=== PATIENT | female | born 1970 ===

== ENCOUNTER 2025-04-17 17:11 | Inpatient (IN) | payer BC, SELFPAY ==
[2025-04-17 13:07] VITALS: BP 105/85
--- NOTE | 2025-04-17 13:19 | ED.GENMED ---
History of Present Illness
General
Chief Complaint: Catheter/Tube Problem
Time Seen by Provider: 04/17/25 13:19
History of Present Illness
History of Present Illness:
FOCUSED PAST MEDICAL HISTORY
- The patient has a history of endometriosis, had gastric sleeve/gastric bypass in the past
REVIEW OF OLD RECORDS
- I reviewed records, the patient had a sleeve gastrectomy
Note:
CHIEF COMPLAINT(S)
Discomfort and pus at the peripherally inserted central catheter (PICC) line site.
HISTORY OF PRESENT ILLNESS
The patient is a 54-year-old female with a PICC line due to inability to consume nutrition orally, managed by Dr. Alesha Mejia and Dr. Maldonado. The patient reports experiencing discomfort at the PICC line site for the past week, with the
discomfort worsening upon flushing and causing a burning sensation. This morning, the patient observed pus at the insertion site, leading to a visit to the emergency department as advised by the visiting nurses through the 800 infusion emergency
line. The patient denies any fever, diarrhea, or other systemic symptoms and has not experienced an infection at the PICC site before, although she reports previous complications with a PICC line. The current PICC line has been in place since October
or November.
ADDITIONAL HISTORY OBTAINED FROM SOURCES OTHER THAN THE PATIENT
The visiting nurses advised the patient to seek emergency medical care after discovering pus at the PICC line site.
CHRONIC MEDICAL CONDITIONS SIGNIFICANTLY AFFECTING CARE
The patient is unable to consume nutrition orally, which necessitates the use of a PICC line.
PHYSICAL EXAM
General: Alert, no acute distress.
Skin: Warm, dry.
Head: Normocephalic, atraumatic.
Neck: Supple, trachea midline.
Eye, Ears, Nose, Mouth and Throat: Oral mucosa moist.
Cardiovascular: Normal peripheral perfusion, No edema.
Respiratory: Respirations are non-labored.
Gastrointestinal: Abdomen nondistended.
Back: Normal range of motion, Normal alignment.
Musculoskeletal: Normal range of motion, normal strength.
Neurological: Alert and oriented to person, place, time, and situation, No focal neurological deficit observed.
Psychiatric: Cooperative, appropriate mood & affect.
PROBLEM LIST
Acute Problems:
- Discomfort and pus at PICC line site suggesting possible infection.
PLAN
The emergency department staff will contact the infection prevention team (IP team) to evaluate the PICC line site and, if possible, arrange for the placement of a new PICC line. If confirmed as an infection, the current PICC line should be removed
and replaced.
DIFFERENTIAL DIAGNOSIS
The Differential Diagnosis includes, in no particular order and is not limited to:
- PICC line infection
- Local cellulitis
- Thrombosis at the PICC site
- Catheter-related bloodstream infection
- Mechanical phlebitis
- Chemical irritation from infusion
- Skin infection unrelated to the PICC
- Early abscess formation
- Foreign body reaction
- Dermatological condition at insertion site
LABS
- White count 5.1, lactic 0.7, blood cultures pending, PICC tip culture pending
UPDATE
- I discussed case with Dr. Peres who recommends that we have the patient admitted to the hospital for IV vancomycin and IV cefepime, cultures, TTE. We remove the left upper extremity PICC
SUMMARY OF ENCOUNTER
The patient, a 54-year-old female with a peripherally inserted central catheter (PICC) line due to inability to consume nutrition orally, presented with discomfort and observed pus at the PICC line site, suggestive of a possible infection. After
discussion with the infectious disease specialist, it was recommended to admit the patient to the hospital for intravenous antibiotics, specifically vancomycin and cefazolin, pending further evaluation of the PICC line site. Plans include conducting
an ultrasound on the right side to confirm accessibility for line placement due to a history of thrombosis post-gastrectomy in March. The PICC line site was to be cultured to confirm infection, and a temporary line placement was considered.
DISPOSITION
Admit
ASSESSMENT
The patient is likely experiencing a PICC line infection with differential diagnoses including bacteremia related to PICC line, local cellulitis, and mechanical phlebitis. Due to the concern of a previous clot, additional diagnostics may be required
to ensure proper vascular access.
MANAGEMENT OF THE PATIENTS CARE WAS DISCUSSED WITH
Infectious disease specialist
PLAN
Admit the patient for hospital care with intravenous antibiotics, initiate treatment with vancomycin and cefazolin as recommended by the infectious disease team, perform an ultrasound of the right side to determine accessibility and ensure no risk
of thrombosis for line placement, and culture the PICC line site to guide further management.
MEDICATION RECONCILIATION
Prescribed intravenous vancomycin and cefazolin for treatment post assessment by the infectious disease specialist.
MEDICAL DECISION MAKING
-Complexity of Data Reviewed:
Chronic conditions affecting care: Inability to consume nutrition orally necessitating a PICC line. Differential diagnoses for current presentation include PICC line infection, local cellulitis, thrombosis, catheter-related bloodstream infection,
mechanical phlebitis, and foreign body reaction.
-Data:
Category 1
Clinical information obtained regarding the past clot was considered for ultrasound screening on the right side for proper vascular access.
Category 3
Discussion of management with infectious disease specialist.
CRITICAL CARE TIME
None mentioned.
DIAGNOSIS
PICC line infection, other ICD-10 code: T82.7
Consideration for bacteremia related to PICC line, ICD-10 code: A49.9
Phy Exam
Physical Exam
Physical Exam:
See HPI
Sepsis
Sepsis Screening
Sepsis Assessment: Sepsis Ruled Out
Sepsis Screen
Sepsis Screen: Sepsis Ruled Out
Date: 04/17/25
Time: 15:30
Course
Orders/Labs/Results
Orders:
Orders
04/17/25 13:29
PICC Line As Directed
04/17/25 14:33
Periph Venous Upr Ext Right US [US Periph Venous UPPER Ext RT] Urgent
Comment:
Reason For Exam: dvt/ro
04/17/25 14:43
Basic Metabolic Panel Urgent
Complete Blood Count/With Diff Urgent
Lactic Acid Urgent
Blood Culture Q30M
JANUARY Source: Blood/Venous
Specimen Description:
04/17/25 14:44
Culture- Patient Line [Patient Line Culture] Urgent
JANUARY Source: Picc
Specimen Description:
Date Specimen was Collected: 04/17/25
Time Specimen was Collected: 14:42
Comment: by Vascular team
04/17/25 15:07
Cefepime HCl [Maxipime] 1,000 mg IV NOW STA
04/17/25 15:08
Vancomycin [Vancocin] 1,500 mg 0.9% Sodium Chloride 500 ml [Nss] 500 ml IV NOW
04/17/25 15:15
Blood Culture Q30M
JANUARY Source: Blood/Venous
Specimen Description:
Abnormal Lab Results
04/17/25
14:43
RBC 3.67 L 10^6/uL
(4.20-5.40)
Hgb 10.9 L g/dL
(12.0-16.0)
Hct 32.8 L %
(37.0-47.0)
Absolute Lymphs (auto) 1.0 L 10^3/uL
(1.2-3.4)
Lymphocytes % 18.9 L %
(20.5-51.1)
04/17/25 14:43
04/17/25 14:43
Vital Signs
Initial and Last Documented VS:
Initial Vital Signs
Temp Pulse Resp BP Pulse Ox
36.8 C 88 22 105/85 97
04/17/25 13:07 04/17/25 13:07 04/17/25 13:07 04/17/25 13:07 04/17/25 13:07
Last Documented Vital Signs
Temp Pulse Resp BP Pulse Ox
36.7 C 89 16 104/81 99
04/17/25 14:00 04/17/25 14:00 04/17/25 14:00 04/17/25 14:00 04/17/25 14:00
*Pulse Oximetry
SaO2: 97
Oxygen Mode of Delivery: Room air
Patient hypoxic: no
*Critical Care Note
Total Time (30-74mins, 75-104mins- exclusive of procedures): Not Applicable
ED Attending Note
-
Portions of this chart may have been created with voice recognition software.� Occasional wrong word or��sound alike� substitutions may have occurred due to the inherent limitations of voice recognition software.
Discharge Plan
Departure
Patient Disposition: Admit
Date of Disposition: 04/17/25
Time of Disposition: 15:29
Presentation/result/management discussed w/ accepting MD/DO: Hospitalist
Discharge Problem:
PICC line infection
Interventions
Interventions:
*Risk Screen - Suicide Last Done: 04/17/25 13:07
*General Assessment Last Done: 04/17/25 13:07
*Neglect/Abuse Screening Last Done: 04/17/25 13:07
*ED- Fall Risk Assessment Last Done: 04/17/25 13:21
*ED COVID-19 Vaccine History Last Done: 04/17/25 13:20
PL-Fnxyzt-Pbsauthvcg Assessment Last Done: 04/17/25 13:26
ED-Female Genitourinary Assessment Last Done: 04/17/25 13:25
Discharge Date and Time
Print Language: SURINAMESE
[2025-04-17 13:20] VITALS: BMI 21.4
[2025-04-17 14:00] VITALS: BP 104/81
[2025-04-17 15:10] LABS: Hematocrit 32.8 % (37.0-47.0); Hemoglobin 10.9 g/dL (12.0-16.0); Mean Corp Hgb Conc. 33.2 g/dL (33.0-37.0); Mean Corpuscular Volume 89.4 fL (81.0-99.0); Nucleated Red Blood Cells % 0 %; Platelet Count 146 10^3/uL (130-400); Red Cell Dist. Width 13.6 % (11.5-14.5)
--- NOTE | 2025-04-17 15:20 | VATNOTE ---
Called to remove suspected infected left arm PICC and place new PICC in opposite arm. Client states that she had picc placed at [facility] for nutrition post gastrectomy and is followed by a home infusion company. States that home infusion nurse came to
her home the other day to redress her PICC line and it has been very painful since. Purulent drainage noted at insertion site. Arm tender to touch. Expressed concern to place PICC in opposite arm due to possible infection and colonization to new
PICC. ED physician requested midline catheter in unaffected arm. Upon questioning client she stated that she had a PICC in her right arm last year and she developed a DVT around it. Right arm appears slightly larger than left. Again, alerted this
information to emergency room physician. Left arm PICC line removed and sent tip for culture. Bloodwork drawn. Urgent ultrasound to right arm ordered and will await results. VAT to follow.
[2025-04-17 15:28] LABS: Blood Urea Nitrogen 15 mg/dl (7-17); Calcium 9.8 mg/dl (8.4-10.2); Carbon Dioxide 28 mmol/L (22-30); Chloride 105 mmol/L (98-107); Estimated Creatinine Clearance 95 ml/min; Glucose 91 mg/dl (70-99); Potassium 4.3 mmol/L (3.5-5.1); Sodium 138 mmol/L (135-145); eGFR > 60.00
[2025-04-17 16:25] VITALS: BP 105/87
--- NOTE | 2025-04-17 16:33 | HPS.HSE ---
Addendum entered and electronically signed by Ayleen Donald MD 04/17/25 20:05:
Correction, the superficial vein thrombosis within the right arm and previously had a DVT there. Not in the left arm or the PICC line removed today. I will discuss with the patient and the nurse
Original Note:
Family Physician
-
Family Physician:
Chief Complaint
-
Purulent discharge from left arm PICC line
History of Present Illness
54-year-old female accompanied by the with known history of gastric bypass with multiple complication including multiple ulcer with eventual total gastrectomy and she is on TPN on daily basis in the evening, this all happened in the last
year and a half. Presented again to the hospital after she woke up this morning having some pain and discomfort in the left arm around the PICC line and eventually when she looked at it there was some purulent discharge came out he called
[facility] is usually goes daily advised her to go to the nearest hospital if she is educated I will start as she is now part of plan. Admit did not feel well the last couple of the otherwise denied any fever or chill or
cough or congestion or any nausea or vomiting or any headache or vision change, no weakness or numbness in extremity, no pulling or tugging on the PICC line.
The PICC line been removed in the ER but to rule out bacteremia therefore cannot put in place a new PICC line and to the blood culture negative for minimum 48 hours.
Also ultrasound of the vein showed superficial vein thrombosis in basilic and cephalic vein.
Medical History
Past Medical History
Past Medical History: Reports Other
Additional Past Medical History:
Past medical history:
Hiatal hernia
History of A-fib status post ablation of anticoagulation
History of DVT in the right arm off anticoagulation
Gastric sleeve placement in 2019 was complicated then changed to gastric bypass followed by gastric bypass revision and eventually total gastrectomy
Hiatal hernia
Failure to thrive
TPN dependent
Chronic pain syndrome on Dilaudid liquid every 4 hours scheduled
Surgical history:
Gastric sleeve
Followed by [facility] gastric bypass next revision of the gastric bypass
Total gastrectomy with a distal esophageal resection of the distal esophageal and jejunal reconstruction.
PICC line placement
Social history: Lives at home with her , no smoking or alcohol use. She is still able to to take broth popsicles and liquid medication like Dilaudid.
Family history: Reviewed and noncontributory
Past Surgical History: Reports Other
Social History
Alcohol: Other
Family History
Family History: Other
Allergies / Home Medications
Allergies reflects when Allergies were last updated in [facility].
Home Medications with original date entered in [facility]
Allergy/Medication List:
Allergies
Allergy/AdvReac Type Severity Reaction Status Date / Time
oxycodone HCl (From Percocet) Allergy Shortness Verified 04/17/25 13:07
of Breath
Home Medications
estradiol 0.025 mg/24 hr semiweekly transdermal patch 1 patch transdermal [facility] 04/17/25
hydromorphone 1 mg/mL oral liquid 2 mg PO Q4H 04/17/25
propranolol 1 mg/mL intravenous solution 40 mg IV BID via picc 04/17/25
teriparatide 20 mcg/dose (560 mcg/2.24 mL) subcutaneous pen injector 20 mcg SC DAILY 04/17/25
Review of Systems
-
A 12 point ROS was completed and negative except as noted: Yes
Physical Exam
Vital Signs
Vital Signs
Temp Pulse Resp BP Pulse Ox
98.2 F 77 16 105/87 100
04/17/25 16:25 04/17/25 16:25 04/17/25 16:25 04/17/25 16:25 04/17/25 16:25
Physical exam:
General: Awake, alert and oriented x3, not in distress and holds appropriate conversation.
HEENT: No active discharge, ecchymosis or bruising, moist lips, tongue and mucous membrane.
Eyes: No discharge or red conjunctiva, no nystagmus, pupils are reactive and equal
Neck:Supple, no JVD no bruit no goiter.
Respiratory: Normal AP contour and diameter, normal chest wall movement, normal respiratory effort, no respiratory distress,
Lungs: Good air entry bilaterally, no wheezing or rhonchi, no rales or crackles
Heart: S1, S2 regular, normal rate, no added sound.
Gastrointestinal: Positive bowel sounds, soft, nontender, no guarding or rigidity or organomegaly
Musculoskeletal: , no chest wall abnormality or tenderness. All joints and extremities have good range of motion, no muscle tenderness or any joint swelling or tenderness.
Extremities: No pitting edema, good peripheral pulses, good range of motion
Skin: Warm and dry, no ulceration, normal color.
Neurological: Awake, alert and oriented x3, no facial droop, normal mentation, speech clear and comprehensive, good muscle tone,
Psychiatric: Normal mood, normal thought and judgment, normal affect,
Physical Exam
General: Other
Laboratory Results
-
04/17/25 14:43
04/17/25 14:43
Laboratory Results
Lactic Acid 0.7 mmol/L (0.7-2.0) 04/17/25 14:43
Left upper extremity ultrasound:Nonocclusive thrombus within the basilic and cephalic veins
Data Reviewed
-
Diagnostic Radiology: Image Personally Visualized and interpreted, Discussed with Nurse, Discussed with Patient and Discussed with Family
Ultrasound: Discussed with Physician
Lab Data: Labs Reviewed by me, Discussed with Patient and Discussed with Family
Old Records: Reviewed
Impression/Plan
-
IMPRESSION:
54-year-old female with history of gastric bypass with multiple complication including stomal ulcer and eventual gastrectomy, presented to the hospital with a concern of purulent discharge from the PICC line and PICC line infection.
PICC line infection:
In immunocompromised patient is TPN dependent in the evening hours.
- PICC line been removed and sent for culture
Blood culture
Covered with broad-spectrum antibiotic until the culture results.
Once culture is negative and no PICC line can be placed in the meantime patient okay with ordering a regular diet but she said usually she takes broth and popsicle and ice cream
Close monitoring.
Superficial vein thrombosis left arm:
PICC line induced
Nonocclusive thrombus within the basilic and cephalic veins
No need for anticoagulation especially there is no swelling or redness or discomfort
Heat pad application
If there is a worsening of the condition pain or swelling develop any chest pain or shortness of breath then anticoagulation may be indicated.
failure to thrive:
Secondary not getting enough adequate nutrition and TPN placed
May need reevaluation of the TPN content and mL.
Chronic pain syndrome on liquid Dilaudid every 4 hours scheduled continue.
GERD on Protonix IV twice daily.
I discussed with the patient and the family in detail and expressed understanding
Discussed with the ER physician
Discussed with the nurse
DVT prophylaxis Lovenox
PLAN:
[2025-04-17] MEDS: DILAUDID 1 MG IV ×2 (16:35→21:16)
[2025-04-17] MEDS: MAXIPIME 1000 MG IV ×2 (16:35→22:31)
[2025-04-17] MEDS: VANCOCIN 530 MG IV (16:36)
[2025-04-17] MEDS: STERILE WATER FOR INJECTION 10 ML IV ×2 (16:36→22:32)
[2025-04-17] MEDS: ZOFRAN 4 MG IV (16:51)
--- NOTE | 2025-04-17 17:51 | VATNOTE ---
PT WITH +CLOT TO RIGHT ARM- SEE REPORT- PER RN BENITO, PICC REINSERTION IS CONTINGENT ON TIP CX FROM REMOVED PICC 04/17. HOLD FOR NOW, WILL CONT TO REVALUATE
[2025-04-17] MEDS: BENADRYL 25 MG IV (17:55)
[2025-04-17 17:58] VITALS: BP 95/77
--- NOTE | 2025-04-17 18:02 | PTCARENOTE ---
pt with reaction to vanco. redness at infusion site (left ac area) and diffuse itching. no airway involvement. MD Donald notified, meds administered per order, vanco was stopped and flushed, redness outline on LUE. pt with no concerns at this
time. reports itching has subsided. 237 mls infused of vanco prior to it being stopped. plan of care continues to be followed. pt awaiting clean room. dinner ordered. spouse at bedside.
[2025-04-17 20:37] VITALS: BP 118/79; BMI 21.0
[2025-04-17] MEDS: PROTONIX IV 40 MG IV (21:18)
[2025-04-17] MEDS: LOVENOX 40 MG SC (21:18)
--- NOTE | 2025-04-17 22:14 | PTCARENOTE ---
Pt admitted to floor from ED. AAOx3. VSS, Pt reports itching to old PICC site. Area is reddened and outlined. Heat applied as ordered. Oriented to room. Call jiménze within reach.
[2025-04-17] MEDS: CUBICIN 12 MG IV (22:56)
[2025-04-17 23:50] VITALS: BP 120/72
[2025-04-18] MEDS: DILAUDID 1 MG IV ×6 (01:06→20:53)
[2025-04-18] MEDS: ZOFRAN 4 MG IV (03:28)
[2025-04-18] MEDS: STERILE WATER FOR INJECTION 10 ML IV ×4 (05:30→23:16)
[2025-04-18] MEDS: BENADRYL 25 MG IV (05:30)
[2025-04-18] MEDS: MAXIPIME 1000 MG IV ×4 (05:30→23:15)
[2025-04-18 07:00] VITALS: BP 115/66
--- NOTE | 2025-04-18 07:51 | W.PN.HOSP.TC ---
Today's Communication/Plan
-
Continue broad spectrum antibiotics with Daptomycin and Cefepime
Follow cultures
Please see below
Assessment / Plan
Assessment / Plan
Physical Exam
General: Not in acute distress
HEENT: Normocephalic
Neck: Supple
Lungs: Clear to Auscultation Bilaterally
Heart: S1, S2. Regular Rate and Rhythm
Gastrointestinal: Positive bowel sounds, soft, nontender
Extremities: No cyanosis. No edema
Skin: Warm. Dry.
Neurological: Awake, alert and oriented x3, nonfocal/grossly intact bilaterally
Psychiatric: Calm
Assessment/Plan
54-year-old female accompanied by the with known history of gastric bypass with multiple complications including multiple ulcer with eventual total gastrectomy and she is on TPN on daily basis in the evening, this all happened in the last
year and a half. Presented again to the hospital after she woke up on 04/17/25 morning having some pain and discomfort in the left arm around the PICC line and eventually when she looked at it there was some purulent discharge came out; she called [facility] where she usually goes but they advised her to go to the nearest [facility]. The LUE PICC line was removed in the emergency room. RUE ultrasound (which per reports was done to see
whether there was any clot prior to potentially placing PICC line on the RUE instead, since patient had history of DVT in the RUE a while back -- saw dealer relationship manager Dr. Aleman) showed nonocclusive thrombus within the basilic and cephalic veins.

Presentation with Discomfort and LUE PICC Line area purulent drainage
Left Upper Extremity PICC line infection (PICC line removed around the time of admission)
Allergy to vancomycin - itching
-Continue Daptomycin and Cefepime
-Follow blood cultures
-Check echo
-PICC line can be replaced when blood cultures x2 are negative x48 hours
-Apparently, RUE ultrasound was done around the time of admission to check for any thrombosis, given patient's history of RUE DVT (please see below) and question of whether/in case eventually a RUE PICC (instead of the LUE
where PICC was removed this admission) needs to be placed
-Check LUE ultrasound to rule out any thrombosis in that arm as well (ordered) since PICC line was there
Right Upper Extremity Nonocclusive Thrombus within the basilic and cephalic veins (on RUE ultrasound this admission) - Superficial Venous Thrombosis
History of DVT in the Right Upper Extremity (in October 2024?)
-She saw [place] dealer relationship manager Dr. Lowell Aleman who is familiar with patient - was on anticoagulation in the past, but was stopped
-Given SVT on the RUE, consider notifying Dr. Aleman for follow-up appointment after discharge for SVT monitoring
Gastric sleeve placement in 2018 was complicated then changed to gastric bypass followed by gastric bypass revision and eventually total gastrectomy
TPN Dependent
Hiatal hernia
-No TPN for now as PICC line placement is figured out (please see above)
Chronic Severe Episodes of Nausea
-Per patient's request, ordered home Compazine suppository 25 mg PO Q6H prn nausea
-Zofran does not work for the patient, as patient confirmed
-Ordered EKG for morning to monitor for QTc prolongation
History of A-fib status post ablation?
-No rate/rhythm controlling meds on home med list
-Not on anticoagulation
Failure to thrive
-May need TPN regimen re-evaluated
Chronic pain syndrome on PO Liquid Dilaudid every 4 hours scheduled
GERD on Protonix IV twice daily.
I discussed with the patient and her in detail and expressed understanding
Discussed with the nurse
DVT Prophylaxis: Lovenox
Code Status: Full Code
Anticipated Discharge: > 48 hours
Subjective/Interval History
-
Date of Service: April 18, 2025
Patient was seen and examined. She reported feeling significant nausea.
Objective Data
-
Labs:
Laboratory Results
04/18/25
06:00
WBC Pending
Hgb Pending
Hct Pending
Plt Count Pending
Sodium Pending
Potassium Pending
Chloride Pending
Carbon Dioxide Pending
BUN Pending
Creatinine Pending
Glucose Pending
Calcium Pending
Vital Signs:
Vital Signs
Temp Pulse Resp BP Pulse Ox
97.5 F 95 18 120/72 98
04/17/25 23:50 04/17/25 23:50 04/17/25 23:50 04/17/25 23:50 04/17/25 23:50
I&O
04/17/25 04/18/25 04/19/25
06:59 06:59 06:59
Intake Total 240 / 240
Balance 240 / 240
[2025-04-18] MEDS: NSS (PRESERVATIVE FREE) 10 ML IV ×2 (08:07→20:54)
[2025-04-18] MEDS: PROTONIX IV 40 MG IV ×2 (08:08→20:54)
[2025-04-18 08:57] LABS: Hematocrit 32.0 % (37.0-47.0); Hemoglobin 10.8 g/dL (12.0-16.0); Mean Corp Hgb Conc. 33.8 g/dL (33.0-37.0); Mean Corpuscular Volume 90.9 fL (81.0-99.0); Red Cell Dist. Width 13.4 % (11.5-14.5)
[2025-04-18 09:01] LABS: Blood Urea Nitrogen 14 mg/dl (7-17); Calcium 9.5 mg/dl (8.4-10.2); Carbon Dioxide 27 mmol/L (22-30); Chloride 106 mmol/L (98-107); Estimated Creatinine Clearance 95 ml/min; Glucose 90 mg/dl (70-99); Potassium 4.7 mmol/L (3.5-5.1); Sodium 138 mmol/L (135-145); eGFR > 60.00
--- NOTE | 2025-04-18 09:47 | CON.ID ---
Consultation
-
Date/Time Consultation Requested: 04/17/25 20:27
Date/Time Consultation Performed: 04/18/25 9:47
Requesting Provider: Hoang MARTINEZ
Performing Provider: Dr Peres
Reason for Consultation: PICC line infection
Chief Complaint / Past History
Chief Complaint
Purulent discharge from left arm PICC line
History of Present Illness
Ms Hook is a 54 year old female with history total gastrectomy due to complications of gastric bypass on chronic TPN for the last year and a half. She had several days of tenderness of the line then she woke up yesterday with pain in the left
arm around the PICC line and purulent discharge. will start as she is now part of plan. Denied any fever or chill or cough or congestion or any nausea or vomiting or any headache or vision change, no weakness or numbness in extremity, no pulling
or tugging on the PICC line. She is able to take liquid medication.
Since arrival here she has been afebrile, bp overall stable, wbc initially 5.1 now 4.1, hgb 10.8, plt 146, no L shift, cr 0.6, lactic acid 0.7, vascular US right: Nonocclusive thrombus within the basilic and cephalic veins. PICC was removed tip
sent for culture, blood cultures x2 are in progress, ID is consulted for assistance with management.
Past History
Additional Past Medical History:
Hiatal hernia
History of A-fib status post ablation of anticoagulation
History of DVT in the right arm off anticoagulation
Gastric sleeve placement in 2019 was complicated then changed to gastric bypass followed by gastric bypass revision and eventually total gastrectomy
Hiatal hernia
Failure to thrive
TPN dependent
Chronic pain syndrome on Dilaudid liquid every 4 hours scheduled
Additional Past Surgical History:
Gastric sleeve
Followed by [facility] gastric bypass next revision of the gastric bypass
Total gastrectomy with a distal esophageal resection of the distal esophageal and jejunal reconstruction
PICC line placement
Allergy History:
vancomycin Allergy (Mild, Verified 04/17/25 17:50)
Itching
oxycodone HCl (From Percocet) Allergy (Verified 04/17/25 13:07)
Shortness of Breath
Medications Reviewed: Yes
Social History
Tobacco: Non-Smoker
Alcohol: None
Personal:
Family History
Family History: Not Pertinent
Review of Systems
Review of Systems
A 12 point ROS was completed and negative except as noted
Vital Signs
Temp Pulse Resp BP Pulse Ox
97.9 F 74 20 115/66 98
04/18/25 07:00 04/18/25 07:00 04/18/25 07:00 04/18/25 07:00 04/18/25 07:00
Physical Exam
Physical Exam
Constitutional: No Acute Distress
Cardiovascular: Regular Rate and S1/S2; Negative Murmur or Rub
Pulmonary: Clear and Symmetric; Negative Wheezes, Rales or Rhonchi
Gastrointestinal: Soft, Non Tender, Non Distended and Normal Bowel Sounds
Skin: Warm and Dry; Negative Rash or Jaundice
Wound: Other (L picc site no erythema, warmth, tenderness or cords today)
Lab / Diagnostic Study Results
04/18/25 08:32
04/18/25 08:32
Abs Immat Gran (auto) 0.0 10^3/uL (0-0.05) 04/17/25 14:43
Absolute Neuts (auto) 3.8 10^3/uL (1.4-6.5) 04/17/25 14:43
Absolute Lymphs (auto) 1.0 10^3/uL (1.2-3.4) L 04/17/25 14:43
Absolute Monos (auto) 0.2 10^3/uL (0.1-0.6) 04/17/25 14:43
Absolute Basos (auto) 0.0 10^3/uL (0-0.2) 04/17/25 14:43
Immature Gran % 0.0 % (0-0.5) 04/17/25 14:43
Neutrophils % 74.3 % (42.2-75.2) 04/17/25 14:43
Lymphocytes % 18.9 % (20.5-51.1) L 04/17/25 14:43
Monocytes % 4.7 % (1.7-9.3) 04/17/25 14:43
Eosinophils % 1.9 % (0-6) 04/17/25 14:43
Basophils % 0.2 % (0-2) 04/17/25 14:43
Lactic Acid 0.7 mmol/L (0.7-2.0) 04/17/25 14:43
Microbiology Results
Micro:
04/17/25 16:23 Blood Culture - Pending
Blood/Venous
04/17/25 14:43 Blood Culture - Pending
Blood/Venous
04/17/25 14:44 Catheter Tip Culture - Pending
Picc
Assessment / Plan
PICC Line Infection
H/o gastrectomy for complicated gastric bypass
On chronic TPN
Allergy to vancomycin - itching
- blood cultures x2 in progress
- TTE
- agree with daptomycin and cefepime
- PICC replacement when blood cultures x2 are negative x48 hours
[2025-04-18 10:16] LABS: Platelet Count 114 10^3/uL (130-400)
--- NOTE | 2025-04-18 11:34 | CM ---
Addendum entered by Lilli Stone 04/18/25 11:43:
PCP: Ajit Rice
Rx: Fito/ Su
Original Note:
IA completed. LIves with and son in multi-level home with BR on 1st floor. 6 steps at entrance to home. No hx of SNF. Current with [facility]. Grab bar in shower.No insecurities identified. Confirmed PCP, Rx ,insurance and drug
coverage.
New PICC placement pending
Plan: Home with [facility]
[2025-04-18] MEDS: COMPAZINE 25 MG RECTAL (15:37)
[2025-04-18 16:25] VITALS: BP 129/92
[2025-04-18] MEDS: LOVENOX 40 MG SC (18:07)
[2025-04-18] MEDS: CUBICIN 12 MG IV (20:54)
[2025-04-18] MEDS: COMPAZINE 10 MG IV (21:59)
[2025-04-18 23:32] VITALS: BP 128/75
[2025-04-19] MEDS: DILAUDID 1 MG IV ×6 (00:25→21:27)
[2025-04-19] MEDS: STERILE WATER FOR INJECTION 10 ML IV ×2 (05:17→10:03)
[2025-04-19] MEDS: MAXIPIME 1000 MG IV ×2 (05:17→10:03)
[2025-04-19 06:48] LABS: Hematocrit 27.3 % (37.0-47.0); Hemoglobin 9.5 g/dL (12.0-16.0); Mean Corp Hgb Conc. 34.8 g/dL (33.0-37.0); Mean Corpuscular Volume 89.2 fL (81.0-99.0); Platelet Count 124 10^3/uL (130-400); Red Cell Dist. Width 13.1 % (11.5-14.5)
[2025-04-19 07:05] LABS: Blood Urea Nitrogen 15 mg/dl (7-17); Calcium 9.3 mg/dl (8.4-10.2); Carbon Dioxide 26 mmol/L (22-30); Chloride 104 mmol/L (98-107); Estimated Creatinine Clearance 95 ml/min; Glucose 86 mg/dl (70-99); Magnesium 1.7 mg/dl (1.6-2.3); Potassium 4.3 mmol/L (3.5-5.1); Sodium 136 mmol/L (135-145); eGFR > 60.00
[2025-04-19 07:10] VITALS: BP 118/74
--- NOTE | 2025-04-19 07:53 | W.PN.HOSP.TC ---
Today's Communication/Plan
-
see a/p
Assessment / Plan
Assessment / Plan
Physical Exam
General: No acute distress, appears comfortable at this time
HEENT: Normocephalic atraumatic moist mucus membranes
Neck: Supple
Lungs: Clear to Auscultation Bilaterally
Heart: S1, S2. Regular Rate and Rhythm
Gastrointestinal: Positive bowel sounds, soft, nontender
Extremities: No cyanosis. No edema
Skin: Warm. Dry.
Neurological: AOx3 conversant coherent
Psychiatric: Calm
Assessment/Plan
54F hx gastric bypass complicated w ulcerations leading to eventual total gastrectomy, requiring supplemental TPN evening, here d/t concerns infected LUE PICC with associate pain discomfort and purulence. PICC since removed, patient treated with
empiric abx. Replacement PICC complicated with b/l UE nonocclusive thrombosis noted, superficial RUE and Deep LUE.

Presentation with Discomfort and LUE PICC Line area purulent drainage
Left Upper Extremity PICC line infection (PICC line removed around the time of admission)
Allergy to vancomycin - itching
-Blood Cx's neg 48H
-catheter tip prelim pos coag neg staph
-ECHO appreciated EF 60-65% no significant valve abn's noted
-Empiric Daptomycin and Cefepime to transition to oral abx as per ID
-RUE US superficial nonocclusive thrombus basilic and cephalic veins
-LUE US Deep nonocclusive thrombus proximal/mid subclavian and superficial cephalic veins
-Follows [facility] millinery copyist Dr. Lowell Aleman
-Hematology eval requested
-IR consulted for tunnel cath placement, NPO after midnight, ok to use peripheral access on hands b/l upper ext in the meantime
Gastric sleeve placement in 2019 was complicated then changed to gastric bypass followed by gastric bypass revision and eventually total gastrectomy
TPN Dependent
Hiatal hernia
Severe Protein Calorie Malnutrition
-Superintendent [employer] María appreciated
-Eventual restart supplemental TPN when appropriate access in place
-cont oral diet as tolerated, npo after midnight as above
Chronic Severe Episodes of Nausea
-Per patient's request, ordered home Compazine suppository 25 mg PO Q6H prn nausea
-Zofran does not work for the patient, as patient confirmed
-No significant QT prolongation noted
Chronic pain syndrome on PO Liquid Dilaudid every 4 hours scheduled
-substituted with ID Dilaudid while here
GERD on Protonix IV twice daily.
DVT Prophylaxis: Lovenox
Code Status: Full Code
disucssed with patient and patient's Ajit
I spent a total of 50 minutes with the patient or on the floor. More than 50% of this time involved counseling and coordination of care.
Anticipated Discharge: 24 - 48 hours
Subjective/Interval History
-
Date of Service: April 19, 2025
No acute distress, appears comfortable at this time, ambulatory without need for assist device, tolerating diet.
Objective Data
-
Labs:
Laboratory Results
04/19/25
06:16
WBC 4.3 L
Hgb 9.5 L
Hct 27.3 L
Plt Count 124 L
Sodium 136
Potassium 4.3
Chloride 104
Carbon Dioxide 26
BUN 15
Creatinine 0.5 L
Glucose 86
Calcium 9.3
Vital Signs:
Vital Signs
Temp Pulse Resp BP Pulse Ox
98.0 F 84 16 118/74 97
04/19/25 07:10 04/19/25 07:10 04/19/25 07:10 04/19/25 07:10 04/19/25 07:10
I&O
04/18/25 04/19/25 04/20/25
06:59 06:59 06:59
Intake Total 240 / 240 0 / 0
Balance 240 / 240 0 / 0
[2025-04-19 09:39] VITALS: BMI 21.0
[2025-04-19] MEDS: PROTONIX IV 40 MG IV ×2 (09:42→20:29)
[2025-04-19] MEDS: NSS (PRESERVATIVE FREE) 10 ML IV ×2 (09:43→20:29)
--- NOTE | 2025-04-19 09:51 | W.PN.ID1 ---
Date of Service
Date of Service: April 19, 2025
Today's Communication
- TTE - pending
- PICC replacement today
- agree with daptomycin and cefepime; if blood cultures remain negative at 48 hours and TTE is nonrevealing can transition to doxycycline 100 mg PO BID to complete 7 days total of therapy - through 04/23
- follow up with PCP
Assessment / Plan
PICC Line Infection
H/o gastrectomy for complicated gastric bypass
On chronic TPN
Allergy to vancomycin - itching
- blood cultures x2 in progress - NGTD
- TTE - pending
- PICC replacement today
- blood cultures remain negative at 48 hours and TTE is nonrevealing can transition to bactrim 160 mg PO solution BID to complete 7 days total of therapy - through 04/23
- follow up with PCP
Chief Complaint
-: Other (PICC line infection)
Subjective / Review of Systems
afebrile
bp stable
tolerating current therapies
no events overnight
Vital Signs / Physical Exam
Vital Signs
Vital Signs
Temp Pulse Resp BP Pulse Ox
98.0 F 84 16 118/74 97
04/19/25 07:10 04/19/25 07:10 04/19/25 07:10 04/19/25 07:10 04/19/25 07:10
Physical Exam
Constitutional: No Acute Distress and Chronically Ill
Cardiovascular: Regular Rate and S1/S2; Negative Murmur or Rub
Pulmonary: Clear and Symmetric; Negative Wheezes or Rales
Gastrointestinal: Soft, Non Tender, Non Distended and Normal Bowel Sounds
Skin: Warm and Dry; Negative Rash or Jaundice
Wound: Other (PICC site no erythema, warmth, tenderness or drainage)
Objective Data
Lab Data
Lab Results
04/19/25 06:16
04/19/25 06:16
Estimated Creat Clear 95 ml/min 04/19/25 06:16
Lactic Acid 0.7 mmol/L (0.7-2.0) 04/17/25 14:43
Most recent labs reviewed.
Micro Results:
04/17/25 14:44 Catheter Tip Culture - Preliminary
Picc
04/17/25 16:23 Blood Culture - Preliminary
Blood/Venous No Growth in 24 hours- Final report to follow
04/17/25 14:43 Blood Culture - Preliminary
Blood/Venous No Growth in 24 hours- Final report to follow
--- NOTE | 2025-04-19 10:11 | CM ---
Patient seen at bedside on . Patient stated that she uses the [facility] for TPN at night. Patient eager for next steps, stating she understands she will need updated picc placement and updated referral to [facility]. CM will
continue to follow for discharge planning needs.
Plan; home with [facility]; pending new referral to [facility] and PICC.
[2025-04-19 15:05] VITALS: BP 122/77
[2025-04-19] MEDS: LOVENOX 40 MG SC (17:55)
[2025-04-19] MEDS: BACTRIM 160 MG PO (20:30)
[2025-04-19 23:00] VITALS: BP 102/72
[2025-04-19] MEDS: COMPAZINE 10 MG IV (23:52)
[2025-04-20] VITALS (10 sets, daily range): BP systolic 78–174; BP diastolic 67–89
[2025-04-20] MEDS: DILAUDID 1 MG IV ×7 (01:34→23:32)
[2025-04-20 07:33] LABS: Hematocrit 27.7 % (37.0-47.0); Hemoglobin 9.6 g/dL (12.0-16.0); Mean Corp Hgb Conc. 34.7 g/dL (33.0-37.0); Mean Corpuscular Volume 88.8 fL (81.0-99.0); Platelet Count 123 10^3/uL (130-400); Red Cell Dist. Width 13.2 % (11.5-14.5)
[2025-04-20] MEDS: BACTRIM 160 MG PO ×2 (07:43→20:38)
[2025-04-20] MEDS: PROTONIX IV 40 MG IV ×2 (07:44→20:37)
[2025-04-20] MEDS: NSS (PRESERVATIVE FREE) 10 ML IV ×2 (07:44→20:38)
[2025-04-20 07:59] LABS: Blood Urea Nitrogen 10 mg/dl (7-17); Calcium 8.8 mg/dl (8.4-10.2); Carbon Dioxide 28 mmol/L (22-30); Chloride 104 mmol/L (98-107); Estimated Creatinine Clearance 95 ml/min; Glucose 97 mg/dl (70-99); Potassium 4.1 mmol/L (3.5-5.1); Sodium 136 mmol/L (135-145); eGFR > 60.00
--- NOTE | 2025-04-20 08:41 | W.PN.ID1 ---
Date of Service
Date of Service: April 20, 2025
Today's Communication
would continue bactrim suspension to complete 7 days total of rx 04/17-04/23
Assessment / Plan
PICC Line Infection
H/o gastrectomy for complicated gastric bypass
On chronic TPN
Allergy to vancomycin - itching
- blood cultures x2 in progress - NGTD
- cath tip culture >15 CFU CONS
- TTE - pending
- for tunneled line replacement today
- blood cultures remain negative at 48 hours and TTE is nonrevealing
- attempted switch to linezolid suspension however she was unable to tolerate it and vomited, would continue bactrim suspension to complete 7 days total of rx 04/17-04/23
- follow up with PCP
Chief Complaint
-: Other (PICC line infection)
Subjective / Review of Systems
afebrile
bp stable
cath tip culture >15 cfu CONS
Vital Signs / Physical Exam
Vital Signs
Vital Signs
Temp Pulse Resp BP Pulse Ox
97.8 F 82 16 172/85 98
04/20/25 07:20 04/20/25 07:20 04/20/25 07:20 04/20/25 07:20 04/20/25 07:20
Physical Exam
Constitutional: No Acute Distress
Cardiovascular: Regular Rate and S1/S2; Negative Murmur or Rub
Pulmonary: Clear and Symmetric; Negative Wheezes or Rales
Gastrointestinal: Soft, Non Tender, Non Distended and Normal Bowel Sounds
Skin: Warm and Dry; Negative Rash or Jaundice
Lines: Other (tunneled line in place)
Objective Data
Lab Data
Lab Results
04/20/25 06:48
04/20/25 06:48
Estimated Creat Clear 95 ml/min 04/20/25 06:48
Lactic Acid 0.7 mmol/L (0.7-2.0) 04/17/25 14:43
Most recent labs reviewed.
Micro Results:
04/17/25 14:44 Catheter Tip Culture - Preliminary
Picc Coagulase neg. staphylococcus
04/17/25 16:23 Blood Culture - Preliminary
Blood/Venous No Growth in 48 hours- Final report to follow
04/17/25 14:43 Blood Culture - Preliminary
Blood/Venous No Growth in 48 hours- Final report to follow
--- NOTE | 2025-04-20 09:30 | PN.CDI ---
CDI
- -
CDI:
Physician Documentation Request
Admit Date: 04/17/25 17:11
Dear Doctor Blake,
Please review the following and provide your response in the progress notes.
Clinical Indicators:
Pt admitted for PICC infection.
04/19 Progress Note: ' Chronic pain syndrome on PO Liquid Dilaudid every 4 hours scheduled
-substituted with ID Dilaudid while here.'
Based on the above, could you clarify in the progress notes, the appropriate diagnosis, if significant, that supports the above abnormalities and additional evaluation, monitoring and/or treatment rendered:
Opioid Dependence
Chronic pain syndrome Only
Other
Use of terms such as suspected, likely, concern for, or probable (associated with a specific diagnosis that is being evaluated, monitored, or treated as if it exists) are acceptable and can be coded in the inpatient setting, when documented at the
time of discharge.
Thank you,
Karen Smith RN, BSN
CDI Specialist
[facility]
Please use your independent medical judgment in providing your response.
[2025-04-20] MEDS: COMPAZINE 10 MG IV ×2 (09:44→23:33)
[2025-04-20] MEDS: ANCEF 10 IV (10:37)
--- NOTE | 2025-04-20 11:08 | W.PN.HOSP.TC ---
Addendum entered and electronically signed by Ailyn Lozano MD 04/21/25 07:39:
Chronic pain syndrome possible opioid dependence
Original Note:
Today's Communication/Plan
-
cont abx as per ID
Therapeutic Lovenox as per Hematology
discharge planning home when home TPN can be resumed
Assessment / Plan
Assessment / Plan
Physical Exam
General: No acute distress, appears relatively comfortable at this time
HEENT: Normocephalic atraumatic moist mucus membranes
Neck: Supple
Lungs: Clear to Auscultation Bilaterally
Heart: S1, S2. Regular Rate and Rhythm New Right chest tunnel cath noted, dressing clean dry intact
Gastrointestinal: Positive bowel sounds, soft, nontender
Extremities: No cyanosis. No edema
Skin: Warm. Dry.
Neurological: AOx3 conversant coherent
Psychiatric: Calm
Assessment/Plan
54F hx gastric bypass complicated w ulcerations leading to eventual total gastrectomy, requiring supplemental TPN evening, here d/t concerns infected LUE PICC with associate pain discomfort and purulence. PICC since removed, patient treated with
empiric abx. Replacement PICC complicated with b/l UE nonocclusive thrombosis noted, superficial RUE and Deep LUE.

Presentation with Discomfort and LUE PICC Line area purulent drainage
Left Upper Extremity PICC line infection (PICC line removed around the time of admission)
Allergy to vancomycin - itching
-Blood Cx's neg 48H
-catheter tip cx pos for Staph epidermidis sensitivities appreciated
-ECHO appreciated EF 60-65% no significant valve abn's noted
-Empiric Daptomycin and Cefepime to transition to oral abx Bactrim as per ID planned total 7 days 04/17-04/23 (Linezolid suspension was attempted but patient could not tolerate, vomited immediately)
-RUE US superficial nonocclusive thrombus basilic and cephalic veins
-LUE US Deep nonocclusive thrombus proximal/mid subclavian and superficial cephalic veins
-Follows [facility] [employer] operator Dr. Lowell Aleman
-Hematology eval appreciated therapeutic lovenox started 04/20
-IR consult appreciated Right Sided Chest Tunnel Cath placed 04/20/25
Gastric sleeve placement in 2018 was complicated then changed to gastric bypass followed by gastric bypass revision and eventually total gastrectomy
TPN Dependent
Hiatal hernia
Severe Protein Calorie Malnutrition
-Felling Machine Operator Eval appreciated
-Eventual restart supplemental TPN
-cont oral diet as tolerated
Chronic Severe Episodes of Nausea
-Per patient's request, ordered home Compazine suppository 25 mg PO Q6H prn nausea
-Zofran does not work for the patient, as patient confirmed
-No significant QT prolongation noted
Chronic pain syndrome on PO Liquid Dilaudid every 4 hours scheduled
-substituted with ID Dilaudid while here
GERD on Protonix IV twice daily.
DVT Prophylaxis: Lovenox
Code Status: Full Code
disucssed with patient and patient's Ajit
I spent a total of 45 minutes with the patient or on the floor. More than 50% of this time involved counseling and coordination of care.
Anticipated Discharge: Within 24 hours
Subjective/Interval History
-
Date of Service: April 20, 2025
Tunnel cath placement today. Tolerated procedure well. Did not tolerate Linezolid suspension, vomited with first dose.
Objective Data
-
Labs:
Laboratory Results
04/20/25
06:48
WBC 2.8 L
Hgb 9.6 L
Hct 27.7 L
Plt Count 123 L
Sodium 136
Potassium 4.1
Chloride 104
Carbon Dioxide 28
BUN 10
Creatinine 0.6
Glucose 97
Calcium 8.8
Vital Signs:
Vital Signs
Temp Pulse Resp BP Pulse Ox
98.4 F 91 14 174/86 100
04/20/25 10:15 04/20/25 10:15 04/20/25 10:15 04/20/25 10:15 04/20/25 10:15
I&O
04/19/25 04/20/25 04/21/25
06:59 06:59 06:59
Intake Total 0 / 0
Balance 0 / 0
--- NOTE | 2025-04-20 12:02 | CON.ONC ---
Consultation
-
Date Consultation Requested: 04/20/25
Date Consultation Performed: 04/20/25
Requesting Provider: Dr. Ailyn Lozano
Performing Provider: Dr. Mary Albarado
Reason for Consultation: VTE
Impression
Impression
RUE US showed a Nonocclusive thrombus within the basilic and cephalic veins. Her LUE US showed a Nonocclusive thrombus within the proximal/mid subclavian and cephalic veins
chronic anemia with Hgb baseline ~10.5g/dL
mild leukopenia/thrombocytoepenia in the setting of suspected infection, now on abx
Plan
Plan
UE VTE provoked by PICC line and possibly estradiol patch is contributing. Recommend therapeutic enoxaparin since pt is unable to tolerate pills. She should remain on therapeutic enoxaparin for the duration of PICC line utilization to avoid further
PICC associated VTE. Following removal of PICC line and in the absence of further hormonal therapy, could consider 3 months of anticoagulation followed by repeat b/l UE US prior to determine if continued anticoagulation is needed.
abx per ID
Patient History
History of Present Illness
54yo F with PICC for TPN presented with pain and discomfort in the arm with her picc line. She reports that she awoke / and noticed pain and discomfort around the picc line in her left arm. She aslo noted prulent drainage at the picc site. She
called her P provider and was advised to proceed to the ER for further evaluation. Her RUE US showed a Nonocclusive thrombus within the basilic and cephalic veins. Her LUE US showed a Nonocclusive thrombus within the proximal/mid subclavian and
cephalic veins. She was admitted, started on antibiotics, and enoxaparin dvt ppx. Her LUE PICC line was removed and a RUE PICC line was placed by IR. Her Blood cultures are negative to date. Her PICC tip culture showed Staphylococcus epidermis. Her
admission labs were notable for normocytic anemia Hgb 10.9g/dL with a normal WBC and platelet count. She has now developed mild leukopenia with a WBC 2.8 and mild thrombocytopenia with a platelet count 123,000. She had a previous PICC associated
thrombus for which she was treated with therapeutic enoxaparin. She stopped anticoagulation when picc was removed, however, did not restart when a new picc line was placed.
Clinclly, denies fever, chills, cough, chest pain, palpations, n/v/d/c or abdominal pain. She deneis any overt bleeding.
Past-Medical/Surgical History
PMH VTE, AF, hiatal hernia
Past Surgical History
s/p gastric sleeve - 2018
s/p gastric bypass 08/28
s/p esophagogastrectomy w/ Miranda-en Y esophagus jejunal anastomosis - Dr. Killian/ Dr. Harry Mejia
Social former smoker, denies ETOH or recreational drugs, lives with
Family denies thrombosis
Patient Medication
�Medication �Instructions �Recorded �Confirmed �Last Taken �Type
estradiol 0.025 mg/24 hr 1 patch transdermal SUTH Hormonal 04/17/25 04/17/25 04/17/25 History
semiweekly transdermal patch Agent
hydromorphone 1 mg/mL oral liquid 2 mg PO Q4H Pain 04/17/25 04/17/25 04/17/25 History
propranolol 1 mg/mL intravenous 40 mg IV BID via picc 04/17/25 04/17/25 Unknown History
solution
teriparatide 20 mcg/dose (560 20 mcg SC DAILY Diabetes 04/17/25 04/17/25 04/17/25 History
mcg/2.24 mL) subcutaneous pen
injector
Active Medications
Generic Name Dose Route Start Last Admin
Trade Name Freq PRN Reason Stop Dose Admin
Bisacodyl 10 mg 04/17/25 20:27
Bisacodyl 10 Mg Rectal Suppository RECTAL 05/15/25 20:26
[id number] PRN
constipation
Diphenhydramine HCl 25 mg 04/17/25 23:47 04/18/25 05:30
Diphenhydramine 50 Mg/Ml 1 Ml Vial IV 05/15/25 23:46 25 mg
Q6HPRN PRN Administration
itching and allergic reaction
Enoxaparin Sodium 40 mg 04/17/25 20:27 04/19/25 17:55
Enoxaparin Sodium 40 Mg/0.4 Ml Syringe SC 05/15/25 20:26 40 mg
QPM KOREY Administration
Hydromorphone HCl 1 mg 04/17/25 16:25 04/20/25 07:39
Hydromorphone 1 Mg/Ml Carpuject IV 05/01/25 16:24 1 mg
Q4H KOREY Administration
Ketorolac Tromethamine 15 mg 04/17/25 20:27
Ketorolac 15 Mg/Ml Injection IV 04/22/25 20:26
Q6HPRN PRN
Mild, moderate pain and fever
Linezolid 600 mg 04/20/25 09:00
Linezolid 600 Mg/30 Ml Udc PO
Q12 KOREY
Pantoprazole Sodium 40 mg 04/17/25 20:27 04/20/25 07:44
Pantoprazole Sodium 40 Mg/10 Ml Vial IV 05/15/25 20:26 40 mg
BID KOREY Administration
Polyethylene Glycol 17 grams 04/17/25 20:27
Polyethylene Glycol Powder 17 Grams Packet PO 05/15/25 20:26
DAILYPRN PRN
constipation
Prochlorperazine Edisylate 10 mg 04/18/25 21:51 04/20/25 09:44
Prochlorperazine 10 Mg/2 Ml Vial IV 05/16/25 21:50 10 mg
Q6HPRN PRN Administration
n/v
Prochlorperazine Maleate 25 mg 04/18/25 13:51 04/18/25 15:37
Prochlorperazine 25 Mg Rectal Suppository RECTAL 05/16/25 13:50 25 mg
Q6HPRN PRN Administration
Nausea/Vomiting
Sodium Chloride 10 ml 04/18/25 08:00 04/20/25 07:44
Sodium Chloride 0.9% (Preservative Free) 10 Ml Vial IV 05/16/25 07:59 10 ml
BID KOREY Administration
Sodium Chloride 0 flush 04/17/25 22:00
Sodium Chloride 0.9% (Flush) Syringe IV 05/15/25 21:59
PER PROTOCOL KOREY
Trimethobenzamide HCl 200 mg 04/18/25 23:36
Trimethobenzamide 200 Mg/2 Ml Vial IM 05/16/25 23:35
Q6HPRN PRN
n/v unrelieved by compazine
Review of Systems
-
ROS is notable for HPI, otherwise negative
Physical Exam
-
General: No Apparent Distress
HEENT: Moist Mucous Membranes; Negative Jaundice
Pulmonary: Other (unlabored)
GI: Soft
Extremities: Pulses Present
Neurology: Non Focal
Skin: Warm
Psych: Calm
Labs
Lab Results
WBC 2.8 10^3/uL (4.8-10.8) L 04/20/25 06:48
RBC 3.12 10^6/uL (4.20-5.40) L 04/20/25 06:48
Hgb 9.6 g/dL (12.0-16.0) L 04/20/25 06:48
Hct 27.7 % (37.0-47.0) L 04/20/25 06:48
MCV 88.8 fL (81.0-99.0) 04/20/25 06:48
MCH 30.8 pg (27.0-31.0) 04/20/25 06:48
MCHC 34.7 g/dL (33.0-37.0) 04/20/25 06:48
RDW 13.2 % (11.5-14.5) 04/20/25 06:48
Plt Count 123 10^3/uL (130-400) L 04/20/25 06:48
MPV 10.2 fL (7.4-10.4) 04/20/25 06:48
Abs Immat Gran (auto) 0.0 10^3/uL (0-0.05) 04/17/25 14:43
Absolute Neuts (auto) 3.8 10^3/uL (1.4-6.5) 04/17/25 14:43
Absolute Lymphs (auto) 1.0 10^3/uL (1.2-3.4) L 04/17/25 14:43
Absolute Monos (auto) 0.2 10^3/uL (0.1-0.6) 04/17/25 14:43
Absolute Eos (auto) 0.1 10^3/uL (0-0.7) 04/17/25 14:43
Absolute Basos (auto) 0.0 10^3/uL (0-0.2) 04/17/25 14:43
Immature Gran % 0.0 % (0-0.5) 04/17/25 14:43
Neutrophils % 74.3 % (42.2-75.2) 04/17/25 14:43
Lymphocytes % 18.9 % (20.5-51.1) L 04/17/25 14:43
Monocytes % 4.7 % (1.7-9.3) 04/17/25 14:43
Eosinophils % 1.9 % (0-6) 04/17/25 14:43
Basophils % 0.2 % (0-2) 04/17/25 14:43
Creatinine 0.6 mg/dL (0.6-1.0) 04/20/25 06:48
Vital Signs
Vital Signs
Temp Pulse Resp BP Pulse Ox
98.3 F 83 13 123/75 97
04/20/25 11:40 04/20/25 11:55 04/20/25 11:55 04/20/25 11:55 04/20/25 11:55
[2025-04-20] MEDS: ZYVOX 600 MG PO (12:29)
--- NOTE | 2025-04-20 12:53 | CM ---
Chart reviewed and community case manager met with patient and plan is to home with [facility] for TPN, patient to resume services, community case manager will provided updated clinical to [facility].
[facility]
[phone]
[2025-04-20 14:22] LABS: ALT (SGPT) 11 U/L (0-35); AST (SGOT) 16 U/L (14-36); Albumin 3.4 g/dl (3.5-5.0); Alkaline Phosphatase 49 U/L (38-126); Iron 61 ug/dl (37-170); Total Protein 5.7 g/dl (6.3-8.2)
[2025-04-20 14:31] LABS: Total Iron Binding Capacity 286 ug/dl (265-497)
[2025-04-20 14:44] LABS: Glycohemoglobin (HgbA1c) 4.7 % (4.0-5.6)
[2025-04-20 14:56] LABS: Ferritin 15.9 ng/ml (11.1-264.0)
[2025-04-20] MEDS: LOVENOX 60 MG SC (15:06)
[2025-04-20 15:27] LABS: Folate 13.0 ng/ml (2.76-20); Vitamin B12 681 pg/ml (239-931)
[2025-04-21] MEDS: LOVENOX SC (00:33)
--- NOTE | 2025-04-21 03:14 | DOWNTIME ---
There was a [employer] Client Roll Forming Machine Set Up Mechanic Downtime on 04/21/2025 from 0100 to 04/21/2025 at 0215. Downtime documentation of patient's care, including medication administrations, has been reconciled in the electronic record per guidelines. Refer to the
patient's paper chart under the miscellaneous tab to see printed paper medication records and downtime forms.
[2025-04-21] MEDS: LOVENOX 60 MG SC ×2 (04:34→12:44)
[2025-04-21] MEDS: DILAUDID 1 MG IV ×3 (04:40→12:44)
[2025-04-21 06:07] LABS: Hematocrit 26.7 % (37.0-47.0); Hemoglobin 9.1 g/dL (12.0-16.0); Mean Corp Hgb Conc. 34.1 g/dL (33.0-37.0); Mean Corpuscular Volume 87.8 fL (81.0-99.0); Platelet Count 114 10^3/uL (130-400); Red Cell Dist. Width 13.2 % (11.5-14.5)
[2025-04-21 06:30] LABS: Blood Urea Nitrogen 9 mg/dl (7-17); Calcium 9.0 mg/dl (8.4-10.2); Carbon Dioxide 28 mmol/L (22-30); Chloride 104 mmol/L (98-107); Estimated Creatinine Clearance 95 ml/min; Glucose 88 mg/dl (70-99); Potassium 4.1 mmol/L (3.5-5.1); Sodium 135 mmol/L (135-145); eGFR > 60.00
--- NOTE | 2025-04-21 07:28 | W.PN.HOSP.TC ---
Addendum entered and electronically signed by Ailyn Lozano MD 04/22/25 07:36:
Mild Pancytopenia
Addendum entered and electronically signed by Ailyn Lozano MD 04/21/25 14:39:
3.2 x 2.7 cm RIGHT adnexal mass near Right Ovary as noted on CT on admission
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
-recommend continued follow up with gynecology.
Addendum entered and electronically signed by Ailyn Lozano MD 04/21/25 13:29:
OK to use PICC/tunnel cath
Original Note:
Today's Communication/Plan
-
discharge
Assessment / Plan
Assessment / Plan
Physical Exam
General: No acute distress, appears relatively comfortable at this time
HEENT: Normocephalic atraumatic moist mucus membranes
Neck: Supple
Lungs: Clear to Auscultation Bilaterally
Heart: S1, S2. Regular Rate and Rhythm New Right chest tunnel cath noted, dressing clean dry intact
Gastrointestinal: Positive bowel sounds, soft, nontender
Extremities: No cyanosis. No edema
Skin: Warm. Dry.
Neurological: AOx3 conversant coherent
Psychiatric: Calm
Assessment/Plan
54F hx gastric bypass complicated w ulcerations leading to eventual total gastrectomy, requiring supplemental TPN evening, here d/t concerns infected LUE PICC with associate pain discomfort and purulence. PICC since removed, patient treated with
empiric abx. Replacement PICC complicated with b/l UE nonocclusive thrombosis noted, superficial RUE and Deep LUE.

Presentation with Discomfort and LUE PICC Line area purulent drainage
Left Upper Extremity PICC line infection (PICC line removed around the time of admission)
Allergy to vancomycin - itching
-Blood Cx's neg 48H
-catheter tip cx pos for Staph epidermidis sensitivities appreciated
-ECHO appreciated EF 60-65% no significant valve abn's noted
-Empiric Daptomycin and Cefepime to transition to oral abx Bactrim as per ID planned total 7 days 04/17-04/23 (Linezolid suspension was attempted but patient could not tolerate, vomited immediately)
-RUE US superficial nonocclusive thrombus basilic and cephalic veins
-LUE US Deep nonocclusive thrombus proximal/mid subclavian and superficial cephalic veins
-Follows [place] communications program manager Dr. Lowell Aleman
-Hematology eval appreciated therapeutic lovenox started 04/20
-IR consult appreciated Right Sided Chest Tunnel Cath placed 04/20/25
Gastric sleeve placement in 2019 was complicated then changed to gastric bypass followed by gastric bypass revision and eventually total gastrectomy
TPN Dependent
Hiatal hernia
Severe Protein Calorie Malnutrition
-Education Assistant Eval appreciated
-Ok to restart home supplemental TPN on discharge (resumption of previous IV therapy services prior to admission)
-cont oral diet as tolerated
Chronic Severe Episodes of Nausea
-Per patient's request, ordered home Compazine suppository 25 mg PO Q6H prn nausea
-Zofran does not work for the patient, as patient confirmed
-No significant QT prolongation noted
Chronic pain syndrome on PO Liquid Dilaudid every 4 hours scheduled
possible opioid dependence
-substituted with ID Dilaudid while here
GERD on Protonix IV twice daily.
DVT Prophylaxis: Lovenox
Code Status: Full Code
Medically stable for discharge home with home infusion TPN services (resumption of previous IV therapy services prior to admission)
Total Time Preparing Discharge ___40____ minutes including examination of the patient, summary of the hospital stay, instructions for continuing care to all relevant caregivers; and preparation of discharge records, prescriptions, and referral
forms if necessary.
Anticipated Discharge: Today
Subjective/Interval History
-
Date of Service: April 21, 2025
No acute distress, overall reports feeling well. Denies new acute issues at this time.
Objective Data
-
Labs:
Laboratory Results
04/21/25
05:49
WBC 2.7 L
Hgb 9.1 L
Hct 26.7 L
Plt Count 114 L
Sodium 135
Potassium 4.1
Chloride 104
Carbon Dioxide 28
BUN 9
Creatinine 0.6
Glucose 88
Calcium 9.0
Vital Signs:
Vital Signs
Temp Pulse Resp BP Pulse Ox
98.3 F 81 18 131/72 98
04/20/25 23:00 04/20/25 23:00 04/20/25 23:00 04/20/25 23:00 04/20/25 23:00
I&O
04/20/25 04/21/25 04/22/25
06:59 06:59 06:59
Intake Total 1640 / 1640
Balance 1640 / 1640
[2025-04-21 07:48] VITALS: BP 123/66
[2025-04-21] MEDS: BACTRIM 160 MG PO (08:21)
[2025-04-21] MEDS: NSS (PRESERVATIVE FREE) 10 ML IV (08:22)
[2025-04-21] MEDS: PROTONIX IV 40 MG IV (08:22)
[2025-04-21 08:45] LABS: ALT (SGPT) 10 U/L (0-35); AST (SGOT) 13 U/L (14-36); Albumin 3.3 g/dl (3.5-5.0); Alkaline Phosphatase 48 U/L (38-126); Magnesium 1.7 mg/dl (1.6-2.3); Total Protein 5.7 g/dl (6.3-8.2)
--- NOTE | 2025-04-21 10:14 | W.PN.ID1 ---
Date of Service
Date of Service: April 21, 2025
Today's Communication
- s/p tunneled line replacement
- continue bactrim suspension to complete 7 days total of rx 04/17-04/23
Assessment / Plan
PICC Line Infection
H/o gastrectomy for complicated gastric bypass
On chronic TPN
Allergy to vancomycin - itching
- blood cultures x2 in progress - NGTD
- cath tip culture >15 CFU CONS - low specificity
- s/p tunneled line replacement
- continue bactrim suspension to complete 7 days total of rx 04/17-04/23
- follow up with PCP
Chief Complaint
-: Other (PICC line infection)
Subjective / Review of Systems
afebrile
bp stable
tolerating current therapies
TTE no lesions
Vital Signs / Physical Exam
Vital Signs
Vital Signs
Temp Pulse Resp BP Pulse Ox
98.4 F 80 20 123/66 98
04/21/25 07:48 04/21/25 07:48 04/21/25 07:48 04/21/25 07:48 04/21/25 07:48
Physical Exam
Constitutional: No Acute Distress
Cardiovascular: Regular Rate and S1/S2; Negative Murmur or Rub
Pulmonary: Clear and Symmetric; Negative Wheezes or Rales
Gastrointestinal: Soft, Non Tender, Non Distended and Normal Bowel Sounds
Skin: Warm and Dry; Negative Rash or Jaundice
Wound: Other (left arm previous IV site no erythema, warmth, tenderness or cords)
Lines: Other (tunneled line)
Objective Data
Lab Data
Lab Results
04/21/25 05:49
04/21/25 05:49
Estimated Creat Clear 95 ml/min 04/21/25 05:49
Lactic Acid 0.7 mmol/L (0.7-2.0) 04/17/25 14:43
Total Bilirubin 0.4 mg/dl (0.2-1.3) 04/21/25 05:49
AST 13 U/L (14-36) L 04/21/25 05:49
ALT 10 U/L (0-35) 04/21/25 05:49
Alkaline Phosphatase 48 U/L (38-126) 04/21/25 05:49
Most recent labs reviewed.
Micro Results:
04/17/25 16:23 Blood Culture - Preliminary
Blood/Venous No Growth in 72 hours- Final report to follow
04/17/25 14:43 Blood Culture - Preliminary
Blood/Venous No Growth in 72 hours- Final report to follow
04/17/25 14:44 Catheter Tip Culture - Final
Picc Staphylococcus epidermidis
--- NOTE | 2025-04-21 10:44 | CM ---
Addendum entered by Rama Botello 04/21/25 14:16:
[facility] has been approved and set up, plan is for patient to return to home today.
Original Note:
talent acquisition relationship manager reached out to [facility] and faxed over all clinicals, including labs, tunnelled PICC information, xrays and will await updated from [facility]. Call also placed to MICHELLE Santos [phone], and bottle caser spoke with
Hien in intake.
Plan; Home with [facility] for TPN.
--- NOTE | 2025-04-21 13:09 | PN.CDI ---
CDI
- -
CDI:
Physician Documentation Request
Admit Date: 04/17/25 17:11
Dear Doctor Blake,
Please review the following and provide your response in the progress notes.
Clinical Indicators:
Pt admitted for PICC infection.
Laboratory Tests
04/19/25 04/20/25 04/21/25
06:16 06:48 05:49
WBC 4.3 L 2.8 L 2.7 L
Hgb 9.5 L 9.6 L 9.1 L
Plt Count 124 L 123 L 114 L
Based on the above, could you clarify in the progress notes, the appropriate diagnosis, if significant, that supports the above lab abnormalities and additional evaluation, monitoring and/or treatment rendered:
Pancytopenia
Insignificant abnormal lab values
Other
Use of terms such as suspected, likely, concern for, or probable (associated with a specific diagnosis that is being evaluated, monitored, or treated as if it exists) are acceptable and can be coded in the inpatient setting, when documented at the
time of discharge.
Thank you,
Karen Smith RN, BSN
CDI Specialist
[place] [facility]
Please use your independent medical judgment in providing your response.
--- NOTE | 2025-04-21 14:45 | W.DCSUMMARY ---
Discharge Summary
Discharge Data
Date of Admission: 04/17/25
Date of Discharge: 04/21/25
-
Pending Results: Yes
Additional Pending Results:
official culture results
Discharge Plan
-
Patient Disposition: Home with Home Care
Discharge Diagnosis/Procedures: PICC Line infection since replaced
Deep Vein Thrombosis Left Upper Extremity
Superficial Vein Thrombosis Right Upper Extremity
Right Sided Chest Wall PICC placement 04/20/25 Ready for use
History Total Gastrectomy on chronic TPN
3.2 x 2.7 cm RIGHT adnexal mass near Right Ovary as noted on CT
Condition: Good
Diet: As tolerated
Additional Diets: Resume home TPN infusions
Activity: As tolerated
Driving Restrictions: As prior to admission
Activity Restrictions/Additional Instructions:
Follow up with primary care provider in 1 week of discharge and your Change Management Consultant and Emergency Medical Service Coordinator in 2 weeks of discharge.
Lovenox prescribed for treatment Deep Vein Thrombosis Left Upper Extremity.
Bactrim prescribed for recent PICC line infection. Last day for antibiotics 04/23/25
Recommending holding Estradiol hormone patch for now (given concerns contributing to thrombosis) until cleared by your primary care provider, Change Management Consultant, or Emergency Medical Service Coordinator.
Please take medications as prescribed/recommended and follow up with primary care provider and/or other healthcare provider involved in your care for refills and/or further adjustment to your medication regimen as necessary.
Referrals:
Lowell Aleman MD [Active, Hematology / Oncology] - in two weeks
Harry Mejia MD [Family Provider, Surgical] - in one week
Prescriptions:
New
sulfamethoxazole-trimethoprim 200-40 mg/5 mL Suspension
20 ml PO Q12 Qty: 400 0RF
Rx Instructions:
Continue through 04/23/25 then stop
enoxaparin 60 mg/0.6 mL Syringe
60 mg SC Q12H Qty: 36 0RF
Continued
hydromorphone 1 mg/mL Liquid
2 mg PO Q4H
teriparatide 20 mcg/dose (560mcg/2.24mL) pen injector
20 mcg SC DAILY
pantoprazole 40 mg Recon Soln
40 mg IV BID
Held
estradiol 0.025 mg/24 hr Patch Semiweekly
1 patch TRANSDERMAL SUTH
Hold Instructions: Given concerns contributing to thrombosis, hold for now until cleared to resume by primary care provider, Change Management Consultant, or Emergency Medical Service Coordinator.
Discharge Orders:
Discharge Patient (As Directed); Ordered 04/21/25
Ordered By: Ailyn Lozano
Discharge Date and Time
Print Language: CYMRO
[2025-04-21 15:43] VITALS: BP 131/84
== END 2025-04-21 16:09 | disposition home health service (06) | DRG 314 ==
LOC: 4 WEST ACU 17:11
PROVIDERS: Hospitalist; Radiology Vascular & Interventional Radiology; Registered Nurse; ADMITTING PHYSICIAN Internal Medicine; ATTENDING PHYSICIAN Internal Medicine; CONSULT PHYSICIAN Student in an Organized Health Care Education/Training Program; EMERGENCY PHYSICIAN Emergency Medicine; FAMILY PHYSICIAN Surgery; OTHER PHYSICIAN Internal Medicine Hematology & Oncology
PROC: 02HV33Z Insertion of Infusion Device into Superior Vena Cava, Percutaneous Approach (ICD-10-PCS; 2025-04-20)
PROC: 0JH63XZ Insertion of Tunneled Vascular Access Device into Chest Subcutaneous Tissue and Fascia, Percutaneous Approach (ICD-10-PCS; 2025-04-20)
DX: T80.218A Other infection due to central venous catheter, initial encounter (principal); E43 Unspecified severe protein-calorie malnutrition; D61.818 Other pancytopenia; F19.20 Other psychoactive substance dependence, uncomplicated; I82.611 Acute embolism and thrombosis of superficial veins of right upper extremity; I82.B22 Chronic embolism and thrombosis of left subclavian vein; I82.712 Chronic embolism and thrombosis of superficial veins of left upper extremity; D84.9 Immunodeficiency, unspecified; Y84.8 Other medical procedures as the cause of abnormal reaction of the patient, or of later complication, without mention of misadventure at the time of the procedure; R62.7 Adult failure to thrive; G89.4 Chronic pain syndrome; K21.9 Gastro-esophageal reflux disease without esophagitis; D69.6 Thrombocytopenia, unspecified; K59.00 Constipation, unspecified; Z79.891 Long term (current) use of opiate analgesic; Z79.899 Other long term (current) drug therapy; Z87.891 Personal history of nicotine dependence; Z76.0 Encounter for issue of repeat prescription
CPT/HCPCS: 36558; 77001; 80048; 80053; 82248; 82550; 82607; 82728; 82746; 83036; 83540; 83550; 83605; 83735; 84100; 85025; 85027; 87040; 87084; 87147; 87186; 93005; 93306; 93971; 96365; 96375; 99152; 99153; 99284; J0878; J2020